=== PATIENT | female | born 1970 | race Two or more races ===

== ENCOUNTER 2022-01-04 22:23 | Emergency (ER) | payer MEDICAID, OTHER ==
[~2022-01-04] VITALS: Ht 160 cm; Wt 85.7 kg
[2022-01-04 22:23] VITALS: BP 185/90
== END 2022-01-05 01:03 | disposition left against medical advice (07) ==
LOC: ER 22:23
DX: K08.89 Other specified disorders of teeth and supporting structures (principal); Z53.21 Procedure and treatment not carried out due to patient leaving prior to being seen by health care provider